=== PATIENT | male | born 2000 | race African-American/Black ===

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

== ENCOUNTER 2019-09-06 17:57 | Emergency (ER) | payer SELFPAY | END 2019-09-06 18:57 | disposition home or self-care (01) | LOC: ERS 17:57 | DX: R09.81 Nasal congestion (principal) | CPT/HCPCS: 99281 ==